=== PATIENT | male | born 1965 | race Caucasian/White ===

== ENCOUNTER → 2016-03-18 | Outpatient (CLI) | payer BC | END | disposition home or self-care (01) | LOC: MMGSC 08:57 | PROVIDERS: ATTEND Family Medicine | DX: Z12.5 Encounter for screening for malignant neoplasm of prostate (principal); E78.1 Pure hyperglyceridemia | CPT/HCPCS: 80061; 36415; G0103 ==

== ENCOUNTER → 2016-05-10 | Outpatient (CLI) | payer BC ==
[2016-05-10 18:37] LABS: Basophils # (A) 0.1 k/uL (0-0.2); Basophils % (A) 1 %; CH 31.3; CHCM 33.8; Eosinophils # (A) 0.5 k/uL (0-0.7); Eosinophils % (A) 5 %; HCT 43.1 % (39.0-53.0); HDW 2.38; HGB 14.1 gm/dL (13.0-17.5); INR 1.1 (<1.1); Luc # (Auto) 0.27; Luc % (Auto) 3; Lymphocytes # (A) 4.3 k/uL (1.0-4.8); Lymphocytes % (A) 42 %; MCH 30.5 pg (25.0-35.0); MCHC 32.8 g/dL (31.0-37.0); MCV 93.1 fL (80.0-100.0); Mean Platelet Volume 7.3; Monocytes # (A) 0.7 k/uL (0-1.0); Monocytes % (A) 6 %; Neutrophils # (A) 4.4 k/uL (1.3-7.7); Neutrophils % (A) 43 %; Prothrombin Time 10.7 sec (9.0-12.0); RBC 4.63 m/uL (4.30-5.90); RDW 13.2 % (11.5-15.5); WBC 10.2 k/uL (3.8-10.6); WBC (Perox) 10.66
== END | disposition home or self-care (01) ==
LOC: MMGSC 15:23
PROVIDERS: ATTEND Family Medicine
DX: Z01.818 Encounter for other preprocedural examination (principal)
CPT/HCPCS: 36415; 85025; 85610

== ENCOUNTER → 2016-12-23 | Outpatient (CLI) | payer BC ==
[2016-12-23 21:25] LABS: ALT 37 U/L (21-72); AST 25 U/L (17-59); Alkaline Phosphatase 93 U/L (38-126); Anion Gap 11 mmol/L; Blood Urea Nitrogen 17 mg/dL (9-20); Calcium 9.6 mg/dL (8.4-10.2); Carbon Dioxide 25 mmol/L (22-30); Chloride 102 mmol/L (98-107); Cholesterol 164 mg/dL (<200); Glucose 89 mg/dL (74-99); HDL Cholesterol 31 mg/dL (40-60); Non-African American GFR(MDRD) >60 (>60 ml/min/1.73 sqM); Potassium 4.7 mmol/L (3.5-5.1); Sodium 138 mmol/L (137-145); Total Bilirubin 0.7 mg/dL (0.2-1.3); Total Protein 6.9 g/dL (6.3-8.2)
== END ==
LOC: MMGSC 09:48
PROVIDERS: ATTEND Family Medicine
DX: I10 Essential (primary) hypertension (principal); E78.5 Hyperlipidemia, unspecified
CPT/HCPCS: 36415; 80053; 80061; 84439; 84443

== ENCOUNTER → 2017-10-18 | Outpatient (CLI) | payer BC ==
[2017-10-18 11:12] LABS: ALT 29 U/L (21-72); AST 23 U/L (17-59); Alkaline Phosphatase 72 U/L (38-126); Anion Gap 8 mmol/L; Blood Urea Nitrogen 19 mg/dL (9-20); Calcium 9.7 mg/dL (8.4-10.2); Carbon Dioxide 28 mmol/L (22-30); Chloride 104 mmol/L (98-107); Cholesterol 155 mg/dL (<200); Glucose 97 mg/dL (74-99); HDL Cholesterol 26 mg/dL (40-60); LDL Cholesterol,Calculated 101 mg/dL (0-99); Potassium 4.7 mmol/L (3.5-5.1); Sodium 140 mmol/L (137-145); Total Bilirubin 0.4 mg/dL (0.2-1.3); Total Protein 7.2 g/dL (6.3-8.2); Triglycerides 139 mg/dL (<150)
[2017-10-18 11:41] LABS: Prostate Specific Antigen 0.56 ng/mL (0.00-4.00)
== END | disposition home or self-care (01) ==
LOC: LABWHC1 09:25
PROVIDERS: ATTEND Family Medicine
DX: I10 Essential (primary) hypertension (principal); E78.00 Pure hypercholesterolemia, unspecified; I26.99 Other pulmonary embolism without acute cor pulmonale
CPT/HCPCS: 36415; 80053; 80061; 84153

== ENCOUNTER 2018-02-17 06:01 | Emergency (ER) | payer BC ==
--- NOTE | 2018-02-17 06:47 | ED ---
Chest Pain HPI - General Source: patient, family Mode of arrival: ambulatory Limitations: no limitations - History of Present Illness MD Complaint: chest pain Onset/Timin -: days(s) Onset: during rest Pain Location: right chest Pain Radiation: back Severity: moderate Quality: sharp Consistency: intermittent Improves With: rest, leaning forward Worsens With: inspiration, movement, other (Coughing) Other Symptoms: cough Treatments Prior to Arrival: none <Joaquim Lundberg - Last Filed: 02/17/18 06:44> <Ke Moore - Last Filed: 02/17/18 13:30> - General Chief Complaint: Chest Pain Stated Complaint: chest pain Time Seen by Provider: 02/17/18 06:27 - History of Present Illness Initial Comments: This patient is a 52-year-old man who presents to be evaluated for right-sided chest pain. He had started yesterday in the morning. He describes it as an intermittent, sharp pain that is usually brought on by movement or deep breath or coughing. It does radiate towards his back. It is moderate intensity (he declines analgesia at initial history and physical). The patient has not had any associated symptoms, though he did have one to 2 days of a nonproductive cough prior to the onset of the symptoms. The patient denies trauma. (Joaquim Lundberg) - Related Data Home Medications Medication Instructions Recorded Confirmed Lisinopril-Hctz 20-25 mg 1 tab PO DAILY 02/19/16 02/17/18 [Zestoretic 20-25] Metoprolol Succinate [Toprol XL] 50 mg PO DAILY 02/19/16 02/17/18 Simvastatin [Zocor] 20 mg PO DAILY 02/19/16 02/17/18 Aspirin EC [Ecotrin Low Dose] 81 mg PO DAILY 02/17/18 02/17/18 Previous Rx's Medication Instructions Recorded Apixaban [Eliquis] 5 mg PO BID #60 tab 02/17/18 Apixaban [Eliquis] 10 mg PO BID #14 tab 02/17/18 traMADol HCl [Ultram] 50 mg PO Q4HR PRN 3 Days #18 tab 02/17/18 Allergies Allergy/AdvReac Type Severity Reaction Status Date / Time acetaminophen [From [place]] Allergy Rash/Hives Verified 02/17/18 10:27 hydrocodone [From Bellerose] Allergy Rash/Hives Verified 02/17/18 10:27 insect venom Allergy Swelling Verified 02/17/18 10:27 Penicillins Allergy Rash/Hives Verified 02/17/18 10:27 Review of Systems ROS Other: All systems not noted in ROS Statement are negative. Constitutional: Denies: fever, chills Respiratory: Reports: cough. Denies: dyspnea, wheezes, hemoptysis Cardiovascular: Reports: chest pain. Denies: palpitations, dyspnea on exertion , orthopnea, edema Gastrointestinal: Denies: abdominal pain, nausea, vomiting Genitourinary: Denies: dysuria, hematuria Musculoskeletal: Denies: back pain Skin: Denies: rash Neurological: Denies: headache Hematological/Lymphatic: Denies: easy bleeding <ToñoJoaquim - Last Filed: 02/17/18 06:44> ROS Other: All systems not noted in ROS Statement are negative. <Ke Moore - Last Filed: 02/17/18 13:30> ROS Statement: Those systems with pertinent positive or pertinent negative responses have been documented in the HPI. EKG Findings - EKG Results: EKG: interpreted by ERMD, sinus rhythm (Rate 83 bpm), normal axis, normal QRS, normal ST/T, no acute changes <ToñoJoaquim - Last Filed: 02/17/18 06:44> Past Medical History Past Medical History: Osteoarthritis (OA) Additional Past Medical History / Comment(s): chronic ear infection History of Any Multi-Drug Resistant Organisms: None Reported Past Surgical History: No Surgical Hx Reported Past Psychological History: No Psychological Hx Reported Smoking Status: Current every day smoker Past Alcohol Use History: Occasional Past Drug Use History: None Reported <ToñoJoaquim - Last Filed: 02/17/18 06:44> General Exam Limitations: no limitations General appearance: alert, in no apparent distress Head exam: Present: atraumatic, normocephalic Eye exam: Present: normal appearance. Absent: scleral icterus, conjunctival injection ENT exam: Present: normal oropharynx Neck exam: Present: normal inspection Respiratory exam: Present: normal lung sounds bilaterally. Absent: respiratory distress, wheezes, rales, rhonchi, stridor, chest wall tenderness Cardiovascular Exam: Present: regular rate, normal rhythm, normal heart sounds. Absent: systolic murmur, diastolic murmur, rubs, gallop GI/Abdominal exam: Present: soft. Absent: distended, tenderness, guarding, rebound, rigid, mass Extremities exam: Present: normal inspection, normal capillary refill. Absent: pedal edema, calf tenderness Back exam: Present: normal inspection. Absent: CVA tenderness (R), CVA tenderness (L) Neurological exam: Present: alert Skin exam: Present: warm, dry, intact, normal color. Absent: rash <Joaquim Lundberg - Last Filed: 02/17/18 06:44> Course <Joaquim Lundberg - Last Filed: 02/17/18 06:44> <Ke Moore - Last Filed: 02/17/18 13:30> Vital Signs 02/17/18 02/17/18 02/17/18 06:04 06:17 07:00 Temperature 98.8 F Pulse Rate 80 85 78 Respiratory 20 27 H 23 Rate Blood Pressure 156/83 O2 Sat by Pulse 98 97 96 Oximetry 02/17/18 02/17/18 08:00 09:00 Temperature Pulse Rate 75 71 Respiratory 23 12 Rate Blood Pressure 129/86 118/77 O2 Sat by Pulse 95 95 Oximetry - Reevaluation(s) Reevaluation #1: 02/17/18 13:21 The patient was endorsed me by Dr. Lundberg at our shift change pending labs apparently lab work had been lost and he'll be redrawn. Patient did have elevated d-dimer CAT scan does show evidence of pulmonary emboli of the right side and peripheral vasculature. Patient currently is awake alert oriented 3 with no distress he does get pain with certain movements however. After long discussion the patient like to be discharged on a later generation anticoagulant. We did discuss Eliquis. Patient is in agreement as is his . He will be started in emergency department given a prescription. He is follow-up with his doctor in 2-3 days and return if any problems. (Ke Moore) Disposition <Joaquim Lundberg Last Filed: 02/17/18 06:44> Is patient prescribed a controlled substance at d/c from ED?: Yes When asked, does pt state using other controlled substances?: No If prescribed controlled substance>3 days was MAPS reviewed?: Prescribed <3 Days If opioid is for acute pain is fill amount 7 days or less?: Yes If Rx opioid, was Start Talking consent form obtained?: Yes <Ke Moore Filed: 02/17/18 13:30> Clinical Impression: Pulmonary embolism, Atypical chest pain Disposition: HOME SELF-CARE Condition: Good Instructions: Pulmonary Embolism (ED), Chest Pain (ED) Prescriptions: Apixaban [Eliquis] 10 mg PO BID #14 tab Apixaban [Eliquis] 5 mg PO BID #60 tab traMADol HCl [Ultram] 50 mg PO Q4HR PRN 3 Days #18 tab PRN Reason: Pain Referrals: Mojgan Bailon MD [Primary Care Provider] - 1-2 days
--- NOTE | 2018-02-17 07:03 | XR ---
EXAMINATION TYPE: XR chest 2V DATE OF EXAM: 02/17/2018 COMPARISON: NONE HISTORY: Chest pain TECHNIQUE: Frontal and lateral views of the chest are obtained. FINDINGS: There is no heart failure nor confluent pneumonic infiltrate. There is slight blunting of left costophrenic angle. Heart size is normal. There is chest leads. Bony thorax is intact. IMPRESSION: Minimal pleural reaction at the lateral left lung base. Normal heart. No heart failure.
[2018-02-17 10:39] LABS: Basophils # (A) 0.1 k/uL (0-0.2); Basophils % (A) 1 %; Eosinophils # (A) 0.3 k/uL (0-0.7); Eosinophils % (A) 2 %; HCT 45.9 % (39.0-53.0); Lymphocytes # (A) 3.1 k/uL (1.0-4.8); Lymphocytes % (A) 26 %; MCH 32.1 pg (25.0-35.0); MCHC 32.7 g/dL (31.0-37.0); MCV 98.4 fL (80.0-100.0); Mean Platelet Volume 6.7; Monocytes # (A) 0.7 k/uL (0-1.0); Monocytes % (A) 6 %; Neutrophils # (A) 7.6 k/uL (1.3-7.7); Neutrophils % (A) 63 %; Platelet Count 299 k/uL (150-450); RBC 4.66 m/uL (4.30-5.90); RDW 12.9 % (11.5-15.5)
[2018-02-17 11:00] LABS: INR 0.9 (<1.2); Partial Thromboplastin Time 22.3 sec (22.0-30.0); Prothrombin Time 9.6 sec (9.0-12.0)
[2018-02-17 11:01] LABS: Creatine Kinase 106 U/L (55-170)
[2018-02-17 11:03] LABS: ALT 23 U/L (21-72); AST 29 U/L (17-59); Albumin 3.9 g/dL (3.5-5.0); Alkaline Phosphatase 76 U/L (38-126); Anion Gap 10 mmol/L; Blood Urea Nitrogen 16 mg/dL (9-20); Calcium 9.4 mg/dL (8.4-10.2); Carbon Dioxide 26 mmol/L (22-30); Chloride 103 mmol/L (98-107); Glucose 103 mg/dL (74-99); Magnesium 2.1 mg/dL (1.6-2.3); Potassium 4.6 mmol/L (3.5-5.1); Sodium 139 mmol/L (137-145); Total Protein 7.5 g/dL (6.3-8.2)
[2018-02-17 11:07] LABS: D-Dimer 1.66 mg/L FEU (<0.60)
[2018-02-17 11:14] LABS: Creatine Kinase MB 0.3 ng/mL (0.0-2.4); Troponin I <0.012 ng/mL (0.000-0.034)
--- NOTE | 2018-02-17 12:52 | CT ---
EXAMINATION TYPE: CT angio chest DATE OF EXAM: 02/17/2018 11:52 AM COMPARISON: None. HISTORY: Chest pain CT DLP: 300.7 mGycm Automated exposure control for dose reduction was used. CONTRAST: CTA scan of the thorax is performed without and with IV Contrast, patient injected with 100ml mL of I sovue 370, pulmonary embolism protocol. . FINDINGS: There are atelectatic changes at the lung bases. There is a small amount of airspace diseas e in the right middle lobe. There is also some atelectasis or early airspace disease involving the le ft lingula. There is a small right-sided pleural effusion. There is no significant axillary, mediastinal or hilar adenopathy. There are small pulmonary emboli in the third order branches of the right lower lobe pulmonary artery . There is also small pulmonary embolus in the right middle lobe pulmonary artery. No definite left-s ided emboli are seen. There is no pericardial fluid. The heart is not enlarged. There is no evidence of right heart strain. Within the abdomen, there are multiple low attenuating lesions within the liver. These appear to repr esent cysts. This could BE confirmed with ultrasound. IMPRESSION: 1. THIS EXAMINATION IS POSITIVE FOR PULMONARY EMBOLI ON THE RIGHT. 2. AIRSPACE DISEASE VERSUS ATELECTASIS IN THE RIGHT MIDDLE LOBE AND LEFT LINGULA. 3. SMALL RIGHT EFFUSION.
[2018-02-17] MEDS ORDERED: APIXABAN 5 MG TAB PO STA (13:09)
[2018-02-17 13:51] VITALS: BP 126/66; PULSE 70; RESP 18; TEMP 99.1
== END 2018-02-17 13:51 | disposition home or self-care (01) ==
LOC: EC 06:01
DX: I26.99 Other pulmonary embolism without acute cor pulmonale (principal); R05 Cough; F17.200 Nicotine dependence, unspecified, uncomplicated; Z79.82 Long term (current) use of aspirin; Z79.899 Other long term (current) drug therapy; Z88.0 Allergy status to penicillin; Z88.5 Allergy status to narcotic agent; Z88.6 Allergy status to analgesic agent; Z91.030 Bee allergy status
CPT/HCPCS: 36415; 93005; 85379; 80053; 82550; 82553; 83735; 84484; 85025; 85610; 85730; 71046; 71275; 99285; Q9967

== ENCOUNTER → 2021-11-05 | Outpatient (CLI) | payer BC ==
[2021-11-05 13:32] LABS: INR 0.9 (<1.2); Partial Thromboplastin Time 23.9 sec (22.0-30.0); Prothrombin Time 10.1 sec (9.0-12.0)
[2021-11-05 18:11] LABS: Basophils # (A) 0.09 X 10*3/uL (0.00-0.10); Basophils % (A) 0.9 %; Eosinophils # (A) 0.43 X 10*3/uL (0.04-0.35); Eosinophils % (A) 4.4 %; HCT 44.9 % (39.6-50.0); HGB 15.2 g/dL (13.0-17.0); Immature Grans, Automated 0.2 %; Lymphocytes # (A) 3.55 X 10*3/uL (0.90-5.00); Lymphocytes % (A) 36.3 %; MCH 31.9 pg (27.0-32.0); MCHC 33.9 g/dL (32.0-37.0); MCV 94.1 fL (80.0-97.0); Mean Platelet Volume 9.5 fL (9.5-12.2); Monocytes # (A) 0.86 X 10*3/uL (0.20-1.00); Monocytes % (A) 8.8 %; NRBC Per 100 WBC 0 /100 WBCS (0.0-0.0); Neutrophils # (A) 4.83 X 10*3/uL (1.80-7.70); Neutrophils % (A) 49.4 %; Platelet Count 330 X 10*3/uL (140-440); RBC 4.77 X 10*6/uL (4.40-5.60); RDW 13.2 % (11.5-14.5); WBC 9.78 X 10*3/uL (4.50-10.00)
[2021-11-05 18:35] LABS: African American GFR (CKD) 92.2 (60.0-200.0); Albumin 4.5 g/dL (3.8-4.9); Albumin/Globulin Ratio 1.7 (1.60-3.17); Anion Gap 11.6 mmol/L (10.00-18.00); BUN/Creat Ratio 15.14 Ratio (12.00-20.00); Blood Urea Nitrogen 15.9 mg/dL (9.0-27.0); Calcium 10.2 mg/dL (8.7-10.3); Globulin 2.6 g/dL (1.6-3.3); Non-African American GFR(CKD) 79.5 (60.0-200.0); Potassium 3.9 mmol/L (3.5-5.5); Total Bilirubin 0.4 mg/dL (0.30-1.20); Total Protein 7.1 g/dL (6.2-8.2)
[2021-11-05 23:24] LABS: Appearance,Urine Clear (Clear); Bilirubin,Urine Negative (Negative); Blood,Urine Negative (Negative); Color,Urine Yellow (Yellow); Ketones,Urine Negative (Negative); Nitrite,Urine Negative (Negative); Specific Gravity,Urine 1.012 (1.001-1.030); Urobilinogen,Urine 0.2 (0.2,1.0)
== END | disposition home or self-care (01) ==
LOC: LABWHC1 12:17
PROVIDERS: ATTEND Family Medicine
DX: Z01.812 Encounter for preprocedural laboratory examination (principal)
CPT/HCPCS: 36415; 80053; 81003; 85025; 85610; 85730